=== PATIENT | female | born 2000 | race Caucasian/White ===

== ENCOUNTER 2020-08-09 12:09 | Emergency (ER) | payer OTHER, SELFPAY ==
[2020-08-09 12:27] VITALS: BP 132/72; PULSE 100; RESP 18; TEMP 37.4; O2SAT 99
--- NOTE | 2020-08-09 13:01 | ED.GENADULT ---
HPI - General Adult General Chief complaint: Upper Respiratory Infection Stated complaint: sore throat Time Seen by Provider: 08/09/20 13:02 Source: patient and RN notes reviewed Mode of arrival: ambulatory Limitations: no limitations History of Present Illness HPI narrative: 20-year-old female presents with complaints of sore throat for the past 2 days. Increase symptoms throughout the night with swelling on LT side per Abena. Dayquil, last on 08/08/20 at bedtime without relief. No high fevers, drooling, neck or throat swelling. Pain is bilateral. Hurts to swallow. Exacerbation factors consist of eating and drinking. No rhinorrhea or nasal congestion. No voice change. No nausea, vomiting, or abdominal pain. Tolerating liquids well. Denies chills, dyspnea, difficulty swallowing, jaw pain, dental pain, facial pain, foreign body sensation, and rash. LMP 07/09/20 and on control. Remains active. The patient reports she have not been diagnosed with COVID-19. The patient reports she is not waiting for the results of a COVID-19 lab test. The patient reports she do not have fever, chills, weakness, or fatigue. The patient reports she do not have a new or worsening cough or shortness of breath. Denies chest pain. The patient reports she do not have any rhinorrhea, congestion, loss of taste, and diarrhea. Denies recent traveling. Denies concerns for COVID-19 or exposures been home with limited outdoor exposure except for essential household needs, student, and return home. At this time, patient is not suspected of having COVID-19. Some parts of this dictation were generated by voice recognition software and may contain typographical and/or grammatical inaccuracies. Related Data Home Medications Medication Instructions Recorded Confirmed norethindrone-e.estradiol-iron 1 tablet PO DAILY 08/09/20 08/09/20 [Mibelas 24 Fe] Allergies Allergy/AdvReac Type Severity Reaction Status Date / Time cefprozil Allergy Unknown Hives Verified 08/09/20 12:42 Review of Systems Review of Systems: Narrative: CONSTITUTIONAL: Denies fever, chills, sweats. EYES: Denies visual changes, redness, discharge. ENT: Denies rhinorrhea, otalgia, congestion. Complains of sore throat. CARDIOVASCULAR: Denies chest pain, palpitations, edema. RESPIRATORY: Denies dyspnea, wheezing, cough. GASTROINTESTINAL: Denies abdominal pain, nausea, vomiting, diarrhea. GENITOURINARY: Denies dysuria, hematuria, abnormal discharge. SKIN: Denies rash or itching. MUSCULOSKELETAL: Denies acute back pain, joint pain, or myalgia. NEUROLOGIC: Denies numbness or focal weakness. PSYCHIATRIC: Denies anxiety or depression. All systems reviewed & are unremarkable except as noted in HPI and below. [facility] Past Medical History Medical History (Updated 08/10/20 @ 00:00 by [facility] Arlene) No significant past medical history Surgical History Surgical History (Updated 08/09/20 @ 13:53 by OSMIN Vallejo) No significant past surgical history Family History Family History (Updated 08/09/20 @ 13:54 by OSMIN Vallejo) Father Non-alcoholic cirrhosis Mother Diabetes mellitus Social History Social History (Updated 08/09/20 @ 13:55 by OSMIN Vallejo) Smoking status: Never smoker Tobacco type: cigarettes Second hand tobacco smoke exposure: Yes Alcohol intake: never Substance use: never Living arrangements: with family Occupation/Education: student Gender identity (if verbalized by the patient): Female Comments At time of signature, agree with nurse past medical, surgical, social, and family history. There is relevant patient's past medical history pertinent to the presenting complaint, no relevant family history pertinent to the presenting complaint. Exam Narrative: Exam Narrative: GENERAL: This is a well-nourished, well-developed patient, in no apparent distress. Speaks in full sentences without deficits and a
== END 2020-08-09 13:20 | disposition home or self-care (01) ==
PROVIDERS: Emergency Provider Nurse Practitioner Family
DX: J02.0 Streptococcal pharyngitis (principal)
CPT/HCPCS: 87880; 99203; G0463

== ENCOUNTER 2020-10-03 13:38 | Emergency (ER) | payer OTHER, SELFPAY ==
[2020-10-03 13:47] VITALS: BP 134/82; PULSE 89; RESP 20; TEMP 37; O2SAT 98
--- NOTE | 2020-10-03 13:52 | ED.URI ---
HPI - URI/Sore Throat General Chief Complaint: Upper Respiratory Infection Stated Complaint: Sore throat Source: patient Mode of arrival: ambulatory Limitations: no limitations History of Present Illness HPI Narrative: Patient is a 20-year-old female who presents complaining of sore throat x3 days, increasing today. Patient has muffled voice during interview. Patient denies taking blpz-aqs-[id number] medications. Patient denies fever or other complaints. Patient reports pain of 6/10, worse with swallowing. Patient able to maintain secretions MD elicited complaint: sore throat Related Data Allergies Allergy/AdvReac Type Severity Reaction Status Date / Time cefprozil Allergy Unknown Hives Verified 10/03/20 14:00 Review of Systems Review of Systems: Narrative: CONSTITUTIONAL: Denies fever, chills, or sweats. EYES: Denies visual changes, redness, or discharge. ENT: Reports sore throat x3 days CARDIOVASCULAR: Denies chest pain, palpitations, or edema. RESPIRATORY: Denies cough or dyspnea. GASTROINTESTINAL: Denies abdominal pain, nausea, vomiting, or diarrhea. GENITOURINARY: Denies dysuria or hematuria. SKIN: Denies rash or itching. MUSCULOSKELETAL: Denies back pain, joint pain, or myalgia. NEUROLOGIC: Denies headache, numbness, dizziness, or weakness. PSYCHIATRIC: Denies anxiety or depression. [facility] Past Medical History Medical History No significant past medical history Surgical History Surgical History No significant past surgical history Family History Family History Father Non-alcoholic cirrhosis Mother Diabetes mellitus Social History Social History Smoking status: Never smoker Tobacco type: cigarettes Second hand tobacco smoke exposure: Yes Alcohol intake: never Substance use: never Gender identity (if verbalized by the patient): Female Exam Narrative: Exam Narrative: GENERAL: Well-appearing, well-nourished, and in no acute distress. HEAD: Normocephalic, atraumatic. EYES: EOMI. No redness or drainage. Conjunctiva are normal. ENT: Mucous membranes pink and moist. Throat: Erythema, edema, exudate, 3+ tonsils bilaterally, muffled voice NECK: Positive cervical lymphadenopathy. CHEST: No respiratory distress. EXTREMITIES: Normal range of motion. SKIN: Warm, dry, no rash. NEURO: No focal deficits. Alert and oriented x3. Gait steady. PSYCH: Normal affect. No signs of depression or anxiety. Course Vital Signs Vital signs: Vital Signs Temperature 37.0 C 10/03/20 13:47 Pulse Rate 89 10/03/20 13:47 Respiratory Rate 20 10/03/20 13:47 Blood Pressure 134/82 10/03/20 13:47 Pulse Oximetry 98 10/03/20 13:47 Temperature 37.0 C 10/03/20 13:47 Pulse Rate 89 10/03/20 13:47 Respiratory Rate 10/03/20 13:47 Blood Pressure 134/82 10/03/20 13:47 Pulse Oximetry 98 10/03/20 13:47 Reviewed. Patient has been instructed to follow-up with her PCP regarding her blood pressure. MDM - URI/Sore Throat MDM Narrative Medical decision making narrative: Patient's rapid strep is negative in urgent care, culture to be sent. Patient has history of strep infections in the past, tonsils are 3+ bilaterally, erythematous with exudate. Patient to be treated for tonsillitis at this time. Patient is stable for discharge to home with outpatient follow-up as needed. Differential Diagnosis Differential diagnosis: Likely upper respiratory infection, viral infection, pharyngitis and other (Tonsillitis, strep throat) Critical Care Time Critical Care Time Critical Care Time: No Discharge Plan Discharge Clinical Impression: Acute tonsillitis Qualifiers: Pharyngitis/tonsillitis etiology: unspecified etiology Qualified Code(s): J03.90 - Acute tonsillitis, unspecified
== END 2020-10-03 14:22 | disposition home or self-care (01) ==
PROVIDERS: Emergency Provider Nurse Practitioner
DX: J03.90 Acute tonsillitis, unspecified (principal)
CPT/HCPCS: 87081; 87880; 99213; G0463

== ENCOUNTER 2020-11-28 14:32 | Emergency (ER) | payer OTHER, SELFPAY ==
[2020-11-28 14:42] VITALS: BP 122/92; PULSE 92; RESP 14; TEMP 36.2; O2SAT 99
[2020-11-28 14:59] VITALS: BP 122/92; PULSE 92; RESP 14; TEMP 36.2; O2SAT 99
--- NOTE | 2020-11-28 15:07 | ED.GENADULT ---
HPI - General Adult General Chief complaint: Upper Respiratory Infection Stated complaint: Swollen/Sore Throat Source: patient Mode of arrival: ambulatory Limitations: no limitations History of Present Illness HPI narrative: Patient presents for evaluation of sore throat. Symptom onset this morning upon waking from sleep for the day. She indicates she was diagnosed with tonsillitis and strep throat twice at the end 2019 between the months of August. She was treated with amoxicillin and penicillin. She states both medications were effective. She denies any fever, chills, nausea, vomiting, abdominal pain, joint pain, myalgias, headache, otalgia, respiratory symptoms. She has not taken any medications to assist with her symptoms. She does not smoke. No additional complaints or concerns. Related Data Home Medications Medication Instructions Recorded Confirmed norethindrone-e.estradiol-iron 1 tablet PO DAILY 11/28/20 11/28/20 [Mibelas 24 Fe] Allergies Allergy/AdvReac Type Severity Reaction Status Date / Time cefprozil Allergy Unknown Hives Verified 11/28/20 14:59 Review of Systems Review of Systems: Narrative: CONSTITUTIONAL: Denies fever, chills, or sweats. EYES: Denies visual changes, redness, or discharge. ENT: Reports sore throat. Denies otalgia, hearing loss or tinnitus CARDIOVASCULAR: Denies chest pain, palpitations, or edema. RESPIRATORY: Denies cough or dyspnea. GASTROINTESTINAL: Denies abdominal pain, nausea, vomiting, or diarrhea. GENITOURINARY: Denies dysuria or hematuria. SKIN: Denies rash or itching. MUSCULOSKELETAL: Denies back pain, joint pain, or myalgia. NEUROLOGIC: Denies headache, numbness, dizziness, or weakness. PSYCHIATRIC: Denies anxiety or depression. [facility] Past Medical History Medical History No significant past medical history Surgical History Surgical History No significant past surgical history Family History Family History Father Non-alcoholic cirrhosis Mother Diabetes mellitus Social History Social History Smoking status: Never smoker Tobacco type: cigarettes Second hand tobacco smoke exposure: Yes Alcohol intake: never Substance use: never Living arrangements: with family Gender identity (if verbalized by the patient): Female Spiritual care concerns: No Exam Narrative: Exam Narrative: GENERAL: Well-appearing, well-nourished, and in no acute distress. HEAD: Normocephalic, atraumatic. EYES: PERRLA and EOMI. ENT: Nares clear, no rhinorrhea or epistaxis. Mucous membranes moist. Bilateral tonsillar enlargement erythema in the posterior pharynx. There is no exudate noted. Uvula is midline NECK: Supple. No adenopathy or masses. No carotid bruits or JVD CHEST: Clear to auscultation. No respiratory distress. No wheezes rales or rhonchi HEART: Regular rate and rhythm. No murmur heard. Normal peripheral pulses. ABDOMEN: Soft, nontender, nondistended, normal active bowel sounds. EXTREMITIES: Normal range of motion. No edema. SKIN: Warm, dry, no rash. NEURO: No focal deficits. Alert and oriented x3. PSYCH: Normal mood and affect. Course Course Emergency Course: This is a 20-year-old female with recurrent tonsillitis/pharyngitis treated with amoxicillin and penicillin twice over the course of the last 4 months. She presents today with chief complaint of sore throat. Physical exam revealed posterior pharyngeal swelling without any evidence of peritonsillar abscess. Rapid strep was negative. [place] was obtained and was positive. Patient was counseled on method of transmission and recommendations for symptom relief. Vital Signs Vital signs: Vital Signs Temperature 36.2 C L 11/28/20 14:42 Pulse Rate 92
--- NOTE | 2020-11-28 15:54 | ED.GENADULT ---
HPI - General Adult General Chief complaint: Upper Respiratory Infection Stated complaint: Swollen/Sore Throat Source: patient Mode of arrival: ambulatory Limitations: no limitations Related Data Home Medications Medication Instructions Recorded Confirmed norethindrone-e.estradiol-iron 1 tablet PO DAILY 11/28/20 11/28/20 [Mibelas 24 Fe] Allergies Allergy/AdvReac Type Severity Reaction Status Date / Time cefprozil Allergy Unknown Hives Verified 11/28/20 14:59 Review of Systems Review of Systems: Narrative: CONSTITUTIONAL: Denies fever, chills, or sweats. EYES: Denies visual changes, redness, or discharge. ENT: Denies rhinorrhea, congestion, sore throat, or otalgia. CARDIOVASCULAR: Denies chest pain, palpitations, or edema. RESPIRATORY: Denies cough or dyspnea. GASTROINTESTINAL: Denies abdominal pain, nausea, vomiting, or diarrhea. GENITOURINARY: Denies dysuria or hematuria. SKIN: Denies rash or itching. Reports redness to the anterior aspect of the left lower extremity MUSCULOSKELETAL: Denies back pain, joint pain. Reports pain in the left lower extremity NEUROLOGIC: Denies headache, numbness, dizziness, or weakness. PSYCHIATRIC: Denies anxiety or depression. [facility] Past Medical History Medical History Diabetes mellitus type 2, controlled, without complications Hyperlipidemia No significant past medical history Surgical History Surgical History History of arthroscopic surgery of shoulder Hx of cholecystectomy No significant past surgical history Family History Family History Father Non-alcoholic cirrhosis Diabetes mellitus Heart disease Mother Diabetes mellitus Breast cancer Social History Social History Smoking status: Never smoker Tobacco type: cigarettes Second hand tobacco smoke exposure: Yes Alcohol intake: never Substance use: never Living arrangements: with family Gender identity (if verbalized by the patient): Female Spiritual care concerns: No Course Vital Signs Vital signs: Vital Signs Temperature 36.2 C L 11/28/20 14:42 Pulse Rate 92 11/28/20 14:42 Respiratory Rate 14 11/28/20 14:42 Blood Pressure 122/92 H 11/28/20 14:42 Pulse Oximetry 99 11/28/20 14:42 Temperature 36.2 C L 11/28/20 14:59 Pulse Rate 92 11/28/20 14:59 Respiratory Rate 14 11/28/20 14:59 Blood Pressure 122/92 H 11/28/20 14:59 Pulse Oximetry 99 11/28/20 14:59 Medical Decision Making Vital Signs Vital Signs: Vital Signs Temperature 36.2 C L 11/28/20 14:42 Pulse Rate 92 11/28/20 14:42 Respiratory Rate 14 11/28/20 14:42 Blood Pressure 122/92 H 11/28/20 14:42 Pulse Oximetry 99 11/28/20 14:42 Temperature 36.2 C L 11/28/20 14:59 Pulse Rate 92 11/28/20 14:59 Respiratory Rate 14 11/28/20 14:59 Blood Pressure 122/92 H 11/28/20 14:59 Pulse Oximetry 99 11/28/20 14:59 Lab Data Labs: Strep Screen Presumptive Negative *(Reference Range: Negative)* Swisher Screen Positive (Reference Range: Negative) Discharge Plan Discharge Clinical Impression: Infectious mononucleosis Qualifiers: Infectious mononucleosis etiology: gammaherpesvirus (incl. EBV) Infectious mononucleosis complication: without complication Qualified Code(s): B27.00 - Gammaherpesviral mononucleosis without complication Patient Disposition: Home, Self-Care Condition: Stable Instructions: Antibiotic Form, Mononucleosis (ED) Patient Language: Tristanian Prescriptions: New Cepacol Sore Throat (yaneth-men) 15-2.3 mg lozenge 1 kait PO .every 2 PRN (Reason: sore throat) Q
== END 2020-11-28 15:37 | disposition home or self-care (01) ==
PROVIDERS: Emergency Provider Nurse Practitioner
DX: B27.90 Infectious mononucleosis, unspecified without complication (principal)
CPT/HCPCS: 36416; 86308; 87081; 87880; 99213; G0463

== ENCOUNTER 2021-06-18 13:48 | Emergency (ER) | payer BC, SELFPAY ==
--- NOTE | ~2021-06-18 | XR_ITS ---
XR ankle RT min 3V 06/18/2021 14:05 Indication: Right ankle pain Procedure: 4 views right ankle Comparison: No prior studies for comparison. Findings: No fracture, subluxation or dislocation. Mild lateral soft tissue swelling. No foreign body ankle mortise intact. Impression: 1: No acute fracture. Reviewed, dictated and finalized at location A. Impression: 1: No acute fracture.
[2021-06-18 13:58] VITALS: BP 141/77; PULSE 81; RESP 16; TEMP 37.3; O2SAT 100
--- NOTE | 2021-06-18 14:00 | ED.LOWEXIN ---
HPI - Extremity Injury (Lower) General Chief Complaint: Extremity Injury, Lower Stated Complaint: right ankle injury Time Seen by Provider: 06/18/21 14:00 Source: patient History of Present Illness HPI Narrative: patient presents with right ankle pain states she rolled her ankle patient has pain to lateral side of ankle Related Data Home Medications Medication Instructions Recorded Confirmed norethindrone-e.estradiol-iron 1 tablet PO DAILY 11/28/20 11/28/20 [Mibelas 24 Fe] Allergies Allergy/AdvReac Type Severity Reaction Status Date / Time cefprozil Allergy Unknown Hives Verified 06/18/21 14:09 Review of Systems Review of Systems: CONSTITUTIONAL: Denies fever, chills, or sweats. EYES: Denies visual changes, redness, or discharge. ENT: Denies rhinorrhea, congestion, sore throat, or otalgia. CARDIOVASCULAR: Denies chest pain, palpitations, or edema. RESPIRATORY: Denies cough or dyspnea. GASTROINTESTINAL: Denies abdominal pain, nausea, vomiting, or diarrhea. GENITOURINARY: Denies dysuria or hematuria. SKIN: Denies rash or itching. MUSCULOSKELETAL: Denies back pain, joint pain, or myalgia. NEUROLOGIC: Denies headache, numbness, or weakness. PSYCHIATRIC: Denies anxiety or depression. [facility] Past Medical History Medical History (Updated 06/18/21 @ 14:05 by OSMIN Encinas) Diabetes mellitus type 2, controlled, without complications Hyperlipidemia No significant past medical history Surgical History Surgical History History of arthroscopic surgery of shoulder Hx of cholecystectomy No significant past surgical history Family History Family History Father Non-alcoholic cirrhosis Diabetes mellitus Heart disease Mother Diabetes mellitus Breast cancer Social History Social History Smoking status: Never smoker Tobacco type: cigarettes Second hand tobacco smoke exposure: Yes Alcohol intake: never Substance use: never Gender identity (if verbalized by the patient): Female Spiritual care concerns: No Comments At time of signature, agree with nursing past medical, surgical, social and family history. There is no relevant family history pertinent to the presenting complaint Exam Narrative: GENERAL: Well-appearing, well-nourished, and in no acute distress. HEAD: Normocephalic, atraumatic. EYES: PERRLA and EOMI. ENT: Nares clear, no rhinorrhea or epistaxis. Mucous membranes moist. NECK: Supple. CHEST: Clear to auscultation. No respiratory distress. HEART: Regular rate and rhythm. No murmur heard. Normal peripheral pulses. ABDOMEN: Soft, nontender, nondistended, normal active bowel sounds. EXTREMITIES: Normal range of motion. No edema. NORMAL DP PULSE, NORMAL CAP REFILL. NORMAL SENSATION. NVI. NO TENDERNESS TO FOOT SENSATION NVI NORMAL DORSALIS PEDIS PULSE. NORMAL MOVEMENT OF ALL TOES. NORMAL CAPILLARY REFILL. NORMAL SKIN COLOR. NO SKIN LESIONS SKIN iTNTACT NO CALF PAIN NO CALF TENDERNESS NO SKIN: Warm, dry, no rash. NEURO: No focal deficits. Alert and oriented x3. [place] Coma Scale Eye Opening: Spontaneous 4 [place] Coma Scale Motor: Obeys Commands 6 [place] Coma Scale Verbal: Oriented 5 [place] Coma Scale Total 15 Course Vital Signs Vital signs: Vital Signs Temperature 37.3 C 06/18/21 13:58 Pulse Rate 81 06/18/21 13:58 Respiratory Rate 16 06/18/21 13:58 Blood Pressure 141/77 H 06/18/21 13:58 Pulse Oximetry 100 06/18/21 13:58 Temperature 37.3 C 06/18/21 13:58 Pulse Rate 81 06/18/21 13:58 Respiratory Rate 16 06/18/21 13:58 Blood Pressure 141/77 H 06/18/21 13:58 Pulse Oximetry 100 06/18/21 13:58 Addressed elevated BP today. Today's blood pressure higher than recommended range. Discussed importance of follow -up with PCP and possible jail effects
== END 2021-06-18 14:20 | disposition home or self-care (01) ==
PROVIDERS: Emergency Provider Nurse Practitioner Family; PCP Physician Assistant
DX: S93.401A Sprain of unspecified ligament of right ankle, initial encounter (principal); S96.911A Strain of unspecified muscle and tendon at ankle and foot level, right foot, initial encounter; X50.9XXA Other and unspecified overexertion or strenuous movements or postures, initial encounter; E11.9 Type 2 diabetes mellitus without complications; E78.5 Hyperlipidemia, unspecified
CPT/HCPCS: 73610; 99213; G0463

== ENCOUNTER 2021-08-26 14:13 | Emergency (ER) | payer BC, SELFPAY ==
[2021-08-26 14:20] VITALS: BP 136/87; PULSE 89; RESP 20; TEMP 36.6; O2SAT 99
[2021-08-26 14:34] VITALS: BP 136/87; PULSE 89; RESP 20; TEMP 36.6; O2SAT 99
--- NOTE | 2021-08-26 14:58 | ED.URI ---
HPI - URI/Sore Throat General Chief Complaint: Upper Respiratory Infection Stated Complaint: Sore Throat/Congestion Time Seen by Provider: 08/26/21 14:48 Source: patient and RN notes reviewed Mode of arrival: ambulatory Limitations: no limitations History of Present Illness HPI Narrative: Patient presents today complaint of 3-day history of sore throat, congestion, cough. Denies any additional symptoms to include fever, ear pain, shortness of breath. She has been taking DayQuil with mild relief and currently rates her pain 7/10. Denies history of asthma or COPD. She is a non-smoker. She has not been vaccinated against COVID-19. MD elicited complaint: cough and sore throat Related Data Home Medications Medication Instructions Recorded Confirmed norethindrone-e.estradiol-iron 1 tablet PO DAILY 11/28/20 08/26/21 [Mibelas 24 Fe] Allergies Allergy/AdvReac Type Severity Reaction Status Date / Time cefprozil Allergy Unknown Hives Verified 08/26/21 14:33 Review of Systems Review of Systems: CONSTITUTIONAL: Denies body aches, fever, chills, or sweats. EYES: Denies visual changes, redness, or discharge. ENT: Denies rhinorrhea, or otalgia.+ Congestion, sore throat CARDIOVASCULAR: Denies chest pain, palpitations, or edema. RESPIRATORY: Denies dyspnea. + Cough GASTROINTESTINAL: Denies abdominal pain, nausea, vomiting, or diarrhea. GENITOURINARY: Denies dysuria or hematuria. SKIN: Denies rash, itching, or wounds. MUSCULOSKELETAL: Denies back pain, joint pain, or myalgia. NEUROLOGIC: Denies headache, numbness, tingling, or weakness. PSYCH: Denies depression or anxiety. [facility] Past Medical History Medical History Diabetes mellitus type 2, controlled, without complications Hyperlipidemia No significant past medical history Surgical History Surgical History History of arthroscopic surgery of shoulder Hx of cholecystectomy No significant past surgical history Family History Family History Father Non-alcoholic cirrhosis Diabetes mellitus Heart disease Mother Diabetes mellitus Breast cancer Social History Social History Smoking status: Never smoker Tobacco type: cigarettes Second hand tobacco smoke exposure: Yes Alcohol intake: never Substance use: never Gender identity (if verbalized by the patient): Female Spiritual care concerns: No Comments At time of signature, I have reviewed and agree with nursing past medical, surgical, social and family history unless otherwise noted. Please see nursing chart for further information. There is no relevant family history pertinent to the presenting complaint Exam Narrative: GENERAL: Well-appearing, well-nourished, and in no acute distress. HEAD: Normocephalic, atraumatic. EYES: EOMI. No redness or drainage. Conjunctivae normal. ENT: Mucous membranes pink and moist. Nares clear. No rhinorrhea. TMs normal bilaterally. Throat erythematous with mild edema. No exudate. Uvula midline. NECK: Normal AROM. Supple. No lymphadenopathy. CHEST: No respiratory distress. Clear to auscultation. HEART: Regular rate and rhythm. No murmur appreciated. Normal peripheral pulses. EXTREMITIES: Normal range of motion. No edema. SKIN: Warm, dry, no rash. Capillary refill normal. Normal skin turgor. NEURO: No focal deficits. Alert and oriented x3. Gait steady. PSYCH: Normal affect. No signs of depression or anxiety. Course Vital Signs Vital signs: Vital Signs Temperature 97.9 F 08/26/21 14:20 Pulse Rate 89 08/26/21 14:20 Respiratory Rate 20 08/26/21 14:20 Blood Pressure 136/87 08/26/21 14:20 Pulse Oximetry 99 08/26/21 14:20 Temperature 97.9 F 08/26/21 14:34 Pulse Rate 89 08/26/21 14:34 Respir
== END 2021-08-26 15:05 | disposition home or self-care (01) ==
PROVIDERS: Emergency Provider Nurse Practitioner
DX: J06.9 Acute upper respiratory infection, unspecified (principal); E11.9 Type 2 diabetes mellitus without complications; E78.5 Hyperlipidemia, unspecified
CPT/HCPCS: 87081; 87880; 99213; G0463